=== PATIENT | male | born 1950 | race Caucasian/White ===

== ENCOUNTER → 2017-12-02 | Outpatient (CLI) | payer OTHER ==
[~2017-12-02] MED LIST: CEFD300C37 PO; FEXO180T15 PO; OMNIPAQUE 350 MG/ML, 150 ML BOTTLE ONE; vit b 12 PO; vit d 3 PO
== END | disposition home or self-care (01) ==
LOC: CFH 11:36
PROVIDERS: ATTEND Nurse Practitioner
DX: N28.1 Cyst of kidney, acquired (principal); R59.9 Enlarged lymph nodes, unspecified; R63.4 Abnormal weight loss; R18.8 Other ascites
CPT/HCPCS: 74177; Q9967

== ENCOUNTER 2017-12-17 06:45 | Day surgery (SDC) | payer OTHER ==
[~2017-12-17] VITALS: Ht 180.3 cm; Wt 116.0 kg
[~2017-12-17 06:45] MED LIST changes: +None at this Time; -OMNIPAQUE 350 MG/ML, 150 ML BOTTLE ONE
[2017-12-17] MEDS ORDERED: LACTATED RINGERS 1,000 ML IV SCH (07:08)
[2017-12-17 07:21] VITALS: BP 116/78
[2017-12-17] MEDS ORDERED: PROPOFOL 10 MG/ML, 20ML ONE (08:37)
[2017-12-17] MEDS ORDERED: ACETAMINOPHEN 325 MG TABLET PO PRN (09:00)
[2017-12-17] MEDS ORDERED: FENTANYL PF 100 MCG/2ML IV PRN (09:00)
[2017-12-17] MEDS ORDERED: ONDANSETRON 2MG/ML, 2ML IV PRN (09:00)
[2017-12-17] MEDS ORDERED: ONDANSETRON ODT 8 MG PO PRN (09:00)
[2017-12-17] MEDS ORDERED: OXYcodone 5 MG/5 ML ORAL.SOL UDC PO PRN (09:00)
== END 2017-12-17 10:35 | disposition home or self-care (01) ==
LOC: OUT 06:45
PROVIDERS: ATTEND Internal Medicine
DX: C16.9 Malignant neoplasm of stomach, unspecified (principal); K31.89 Other diseases of stomach and duodenum; R18.8 Other ascites; D50.9 Iron deficiency anemia, unspecified; Z98.890 Other specified postprocedural states; Z79.899 Other long term (current) drug therapy; Z72.0 Tobacco use
CPT/HCPCS: 43237; 93005; J2704; J7120

== ENCOUNTER 2018-01-21 16:34 | Inpatient (IN) | payer OTHER ==
[~2018-01-21] VITALS: Ht 182.9 cm; Wt 129.3 kg
[2018-01-21] MEDS ORDERED: ASPIRIN 81 MG TABLET CHEW PO ONE (17:00)
[2018-01-21] MEDS ORDERED: SODIUM CHLORIDE FLUSH 10ML SYR IVF ONE ×2 (17:00→18:30)
[2018-01-21 17:20] LABS: BASOPHILS # (AUTO) 0.04 x10^3/uL (0-0.1); BASOPHILS % (AUTO) 0 % (0-1); EOSINOPHILS # (AUTO) 0.02 x10^3/uL (0-0.4); EOSINOPHILS % (AUTO) 0 % (1-7); LYMPHOCYTES # (AUTO) 1.56 x10^3/uL (1-3.4); LYMPHOCYTES % (AUTO) 12 % (22-44); MD NO; MEAN CORPUSCULAR HEMOGLOBIN 29.9 pg (27.5-34.5); MEAN CORPUSCULAR HGB CONC 33.2 g/dL (33.2-36.2); MEAN CORPUSCULAR VOLUME 90.1 fL (81-97); MEAN PLATELET VOLUME 7.4 fL (7.4-10.4); MONOCYTES # (AUTO) 1.35 x10^3/uL (0.2-0.8); MONOCYTES % (AUTO) 10 % (2-9); NEUTROPHILS # (AUTO) 10.61 x10^3/uL (1.8-6.8); NEUTROPHILS % (AUTO) 78 % (42-75); PLATELET COUNT 200 x10^3/uL (130-400); RED CELL DISTRIBUTION WIDTH 20.1 % (9.4-14.8)
[2018-01-21 17:28] LABS: ALBUMIN 1.5 g/dL (3.4-5.0); ANION GAP 10 mmol/L (5-15); CALCIUM 8.6 mg/dL (8.5-10.1); CHLORIDE 101 mmol/L (98-107); CREATININE 0.89 mg/dL (0.7-1.3)
[2018-01-21 17:32] LABS: TROPONIN I < 0.015 ng/mL (0.000-0.045)
[2018-01-21] MEDS ORDERED: HEPARIN 5,000 UNITS/ML, 1ML IV ONE (18:30)
[2018-01-21] MEDS ORDERED: HEPARIN 5,000 UNITS/ML, 1ML IV PRN (18:30)
[2018-01-21] MEDS ORDERED: HEPARIN 25,000 UNITS/500ML PMX 500 ML IV PRN (18:30)
[2018-01-21] MEDS ORDERED: SODIUM CHLORIDE 0.9% 1,000ML IVBOLUS ONE (18:30)
[2018-01-21] MEDS ORDERED: HEPARIN 5,000 UNITS/ML, 1ML ONE (18:32)
[2018-01-21] MEDS ORDERED: HEPARIN 25,000 UNITS/500ML PMX 500 ML ONE (18:33)
[2018-01-21 19:09] LABS: TROPONIN I < 0.015 ng/mL (0.000-0.045)
[2018-01-21 19:28] LABS: INTERNATIONAL NORMALIZED RATIO 1.14 (0.93-1.1); PROTHROMBIN TIME 11.7 Seconds (9.6-11.5)
[2018-01-21 22:05] VITALS: BP 109/73
[2018-01-22] MEDS ORDERED: TEMAZEPAM 15 MG CAPSULE ONE (00:42)
[2018-01-22] MEDS: TEMAZEPAM 15 MG CAPSULE PO PRN ×2 (00:49→21:33)
[2018-01-22 01:20] VITALS: BP 105/72
[2018-01-22 08:44] VITALS: BP 119/83
[2018-01-22] MEDS ORDERED: MIDAZOLAM 1 MG/ML, 5ML ONE (12:00)
[2018-01-22] MEDS ORDERED: FENTANYL PF 100 MCG/2ML ONE (12:00)
[2018-01-22] MEDS ORDERED: FLUMAZENIL 0.1 MG/1 ML, 5ML ONE (12:00)
[2018-01-22] MEDS ORDERED: NALOXONE 1 MG/ML, 2ML ONE (12:01)
[2018-01-22] MEDS ORDERED: CEFAZOLIN PMX 1GM/50ML 50 ML ONE (12:37)
[2018-01-22 19:54] VITALS: BP 93/60
[2018-01-23 02:12] VITALS: BP 104/71
[2018-01-23 08:08] VITALS: BP 102/66
== END 2018-01-23 13:30 | disposition home or self-care (01) | DRG 840 ==
LOC: ED 19:24 → EDIP 20:39 → 4WST 22:01 → 3NW 23:13
PROVIDERS: ADMIT Family Medicine; ATTEND Family Medicine
PROC: 0W9B30Z Drainage of Left Pleural Cavity with Drainage Device, Percutaneous Approach (ICD-10-PCS; principal; 2018-01-23)
DX: C77.9 Secondary and unspecified malignant neoplasm of lymph node, unspecified (principal); E43 Unspecified severe protein-calorie malnutrition; J96.21 Acute and chronic respiratory failure with hypoxia; I82.411 Acute embolism and thrombosis of right femoral vein; J91.0 Malignant pleural effusion; R18.8 Other ascites; R65.10 Systemic inflammatory response syndrome (SIRS) of non-infectious origin without acute organ dysfunction; C78.6 Secondary malignant neoplasm of retroperitoneum and peritoneum; Z66 Do not resuscitate; Z51.5 Encounter for palliative care; E87.5 Hyperkalemia; Z87.891 Personal history of nicotine dependence; Z68.38 Body mass index [BMI] 38.0-38.9, adult; Z74.01 Bed confinement status; Z80.1 Family history of malignant neoplasm of trachea, bronchus and lung; Z80.0 Family history of malignant neoplasm of digestive organs; Z80.8 Family history of malignant neoplasm of other organs or systems
CPT/HCPCS: 32550; 36415; 71275; 76942; 80048; 82040; 83880; 84484; 85025; 85520; 85610; 85730; 93005; 94660; 96374; 99156; 99157; G0378; J0690; J1644; J2250; J3010; C1729; J2310; J7030